=== PATIENT | female | born 1970 | race Caucasian/White ===

== ENCOUNTER 2016-09-28 00:01 | Emergency (ER) | payer OTHER ==
[~2016-09-28] VITALS: Ht 170.2 cm; Wt 56.8 kg
[2016-09-28] MEDS ORDERED: NALOXONE INJ 2 MG/2 ML SYRINGE (J2310) IV STA (00:02)
[2016-09-28] MEDS ORDERED: ONDANSETRON 4MG/2ML VIAL (J2405) As Ordered ONE (00:13)
[2016-09-28 00:22] VITALS: BP 104/64
[2016-09-28] MEDS ORDERED: ONDANSETRON 4MG/2ML VIAL (J2405) IV ONE (00:45)
== END 2016-09-28 01:54 | disposition home or self-care (01) ==
LOC: EDBD 00:01 → M ED 00:01
DX: F10.10 Alcohol abuse, uncomplicated (principal); F17.210 Nicotine dependence, cigarettes, uncomplicated
CPT/HCPCS: 96374; 96375; 99283; J2310; J2405

== ENCOUNTER 2018-05-29 23:36 | Emergency (ER) | payer OTHER, SELFPAY ==
[~2018-05-29] VITALS: Ht 175.3 cm; Wt 67.3 kg
[2018-05-29 23:36] VITALS: BP 126/64
[2018-05-29] MEDS ORDERED: PRED20TA PO (23:44)
[2018-05-29] MEDS ORDERED: TRAZ10TA PO (23:44)
[2018-05-29] MEDS ORDERED: CEFD1CAP8 PO (23:44)
[2018-05-29] MEDS ORDERED: PROTPAK PO (23:44)
== END 2018-05-30 00:49 | disposition left against medical advice (07) ==
LOC: M ED 23:36
DX: R10.9 Unspecified abdominal pain (principal); Z53.21 Procedure and treatment not carried out due to patient leaving prior to being seen by health care provider

== ENCOUNTER → 2019-09-11 | Outpatient (CLI) | payer BC ==
[~2019-09-11] MED LIST: CEFD1CAP8 PO; PRED20TA PO; PROTPAK PO; TRAZ1TAB12 PO
== END ==
LOC: M LABSMTC 11:08
PROVIDERS: ATTEND Pediatrics
DX: Z11.59 Encounter for screening for other viral diseases (principal); Z03.89 Encounter for observation for other suspected diseases and conditions ruled out
CPT/HCPCS: C9803; U0003

== ENCOUNTER → 2019-09-21 | Outpatient (CLI) | payer BC | LOC: M LABSMTC 12:54 | PROVIDERS: ATTEND Family Medicine | DX: Z01.818 Encounter for other preprocedural examination (principal); Z11.59 Encounter for screening for other viral diseases | CPT/HCPCS: C9803; U0003 ==